=== PATIENT | female | born 1980 | race Two or more races ===

== ENCOUNTER 2022-01-14 06:01 | Inpatient (IN) | payer OTHER ==
[~2022-01-14] VITALS: Ht 167.6 cm; Wt 76.7 kg
[2022-01-14] MEDS ORDERED: PRENATAL ONE D1 EACH PO (06:41)
[2022-01-16] MEDS ORDERED: NAPRELAN500 M1 PO (08:44)
== END 2022-01-16 12:52 | disposition home or self-care (01) | DRG 807 ==
LOC: LDR 06:01 → OB/GYN 14:57
PROVIDERS: ADMIT Obstetrics & Gynecology; ATTEND Obstetrics & Gynecology
PROC: 10E0XZZ Delivery of Products of Conception, External Approach (ICD-10-PCS; principal; 2022-01-14)
PROC: 0KQM0ZZ Repair Perineum Muscle, Open Approach (ICD-10-PCS; 2022-01-14)
PROC: 4A1HXCZ Monitoring of Products of Conception, Cardiac Rate, External Approach (ICD-10-PCS; 2022-01-14)
PROC: 3E033VJ Introduction of Other Hormone into Peripheral Vein, Percutaneous Approach (ICD-10-PCS; 2022-01-14)
DX: O70.1 Second degree perineal laceration during delivery (principal); Z37.0 Single live birth; Z3A.37 37 weeks gestation of pregnancy; Z20.822 Contact with and (suspected) exposure to COVID-19